=== PATIENT | female | born 1995 | race Caucasian/White ===

== ENCOUNTER 2018-12-11 16:30 | Outpatient (RCR) | payer BC, SELFPAY | END 2019-01-09 16:24 | disposition home or self-care (01) | LOC: PT.CARL 16:30 | PROVIDERS: Visit Provider Nurse Practitioner Family | DX: M54.5 Low back pain (principal) | CPT/HCPCS: 97012; 97110; 97163; 97164 ==

== ENCOUNTER 2020-06-11 10:56 | Emergency (ER) | payer BC, SELFPAY ==
[2020-06-11 11:08] VITALS: BP 126/70; PULSE 88; RESP 20; TEMP 36.6; O2SAT 96; BMI 37.5
--- NOTE | 2020-06-11 11:35 | HMH.EDUTC ---
[facility] Disposition Clinical Impression: Exposure to COVID-19 virus Disposition: Home, Self-Care Condition on Discharge: Good Instructions: Preventing the Spread of Coronavirus Discharge Instructions Additional Instructions: *Monitor Temp, Over the counter Motrin or Tylenol as directed/as needed Tylenol every 4 hours and Motrin every 6 hours (as long as your family doctor has told you that you can take it) for fever or pain. and straight to ER if unable to lower temp less than 101.0 after medication given *Warm salt water gargles may help to soothe the throat *Throat Lozenges *Warm fluids like tea with honey may help to soothe the throat *Sleep elevated *Humidifier/Vaporizer Follow up IMMEDIATELY for new or worsening symptoms or no Noticeable improvement over the next 48-72 hours. 911 for difficulty breathing or swallowing You was tested for today for COVID19 your test result should be back in the next 24-48 hours, you may call to the [facility] later today or tomorrow to see if your test results are back and the result [phone] [facility] hours are 9am-9pm You was given a handout with instructions for Self Quarantine and Self isolation for while you wait on test results and what to do if they are positive If you are positive the Health Dept will be contacting you also Prescriptions: Fluticasone Propionate [Flonase 50mcg nasal spray 16gm] 1 spr NS DAILY #1 bottle Transmission Status: Pending to [id number] Referrals: Kriss Landers APRN [Primary Care Provider] - As needed Forms: Work/School Release Time of Disposition: 11:35 Medical Decision Making - Arron Inquiry Pt receiving controlled substance: No Arron was queried for this patient: No Vital Signs: 06/11/20 11:08 Temperature 97.9 F Temperature Source Oral Pulse Rate [Radial] 88 Respiratory Rate 20 Blood Pressure [Right Arm] 126/70 Blood Pressure Mean [Right Arm] 88 Blood Pressure Source [Right Arm] Automatic Cuff Blood Pressure Position [Right Arm] Sitting 02 Sat by Pulse Oximetry 96 Oxygen Delivery Method Room Air Orders (Tests/Meds): ORDERS Category Date Time Status Covid-19 Nasal PCR ([facility]) Routine Lab 06/11/20 11:11 Ordered [facility] HPI - General Stated complaint: covid test Time Seen by Provider: 06/11/20 11:35 Mode of Arrival: Ambulatory Source of Information: Patient Limitations: No Limitations Description of Symptoms (Recalled from Triage Doc. by RN): COVID EXPOSURE ON TUESDAY. NO SYMPTOMS HEENT Symptoms (Recalled from RN notes): No Resp Symptoms (Recalled from RN notes): No Skin Symptoms (Recalled from RN notes): No MS Symptoms (Recalled from RN notes): No Functional Status (Recalled from RN notes): WNL - History of Present Illness Provider Complaint: Patient states that she was around someone over the weekend that has since tested positive for COVID States that she isnt having any symptoms but she works around some people that have a low immune system and wanted to get checked - Related Data Previous Rx's Medication Instructions Recorded Fluticasone Propionate [Flonase 1 spr NS DAILY #1 bottle 06/11/20 50mcg nasal spray 16gm] Allergies Allergy/AdvReac Type Severity Reaction Status Date / Time No Known Allergies Allergy Verified 06/11/20 11:10 - Worker's Comp Is this a Worker's Comp case?: No [facility] History - Hepatitis A Screen Drug use history?: No High risk sexual behaviors?: No History of sexually transmitted infection?: No Currently employed?: No Childcare worker?: No Do you have indoor plumbing?: Yes Do you have electricity?: Yes Attestation statement:: This patient has been screened for Hepatitis A risk factors. I have reviewed the patient's past medical history: Yes - Social History Alcohol Intake: never Occupational Status: employed ROS Obtained: Yes All systems reviewed & no additional complaints, Yes Systems reviewed as appropriate & no additional complaints - Constitutional Co
[2020-06-11 11:50] VITALS: BP 126/70; PULSE 88; RESP 20; TEMP 36.6; O2SAT 96
[2020-06-11 19:25] LABS: UTC Strep Screen (Rapid) Negative (Negative)
== END 2020-06-11 11:50 | disposition home or self-care (01) ==
PROVIDERS: Emergency Provider Nurse Practitioner; PCP Nurse Practitioner
DX: Z20.828 Contact with and (suspected) exposure to other viral communicable diseases (principal)
CPT/HCPCS: 87880; 99201; U0003

== ENCOUNTER 2021-03-14 08:01 | Outpatient (CLI) | payer BC, SELFPAY ==
[2021-03-14] VITALS (8 sets, daily range): BP systolic 93–134; BP diastolic 50–81; PULSE 86–94; RESP 14–18; TEMP 36.9–37.3; O2SAT 95–97
== END 2021-03-14 10:45 | disposition home or self-care (01) ==
PROVIDERS: PCP Nurse Practitioner; Visit Provider Nurse Practitioner Family
DX: U07.1 COVID-19 (principal)
CPT/HCPCS: 96365

== ENCOUNTER 2024-08-23 11:00 | Outpatient (RCR) | payer BC, SELFPAY | END 2024-08-23 23:59 | disposition home or self-care (01) | LOC: PT 11:00 | PROVIDERS: Visit Provider Nurse Practitioner Family | DX: M54.32 Sciatica, left side (principal) | CPT/HCPCS: 97012; 97014; 97110; 97140; 97163; 97530; G0283 ==

== ENCOUNTER 2024-08-27 16:01 | Outpatient (RCR) | payer BC, SELFPAY | END 2024-08-27 23:59 | disposition home or self-care (01) | LOC: PT 16:01 | PROVIDERS: Visit Provider Nurse Practitioner Family | DX: M54.32 Sciatica, left side (principal) ==

== ENCOUNTER 2025-04-02 00:39 | Emergency (ER) | payer BC, SELFPAY ==
--- OUTSIDE RECORDS SUMMARY | 2020-04-17 03:55 | XMS_ITS | Continuity of Care Document ---
Author Organization [facility] Address [address] [place] [address] Phone Care Team Providers Care Automatic Punch Press Operator Name Role Phone Alcira SINGLETARY, MSN,WOMEN'S SOCCER COACH-C, Monica Unavailable Un available Allergies, Adverse Reactions, Alerts Substance Reaction Status Criticality No Known Allergies Active No Inform ation Medications Medication Instructions Dosage Effective Dates (start - stop) Status Comments spironolactone 25 mg tablet take 1 tablet by oral route every day 25 MG - Active NUVARING (unknown strength) insert 1 vaginal ring by vaginal route every month leave in place for 3 weeks, remove for 1 week Not Available - Active acyclovir 400 mg tablet 1 tab po bid for viral suppression (#60) - No Longer Active acyclovir 400 mg tablet 1 tab po BID for viral suppresion (#100) - No Longer Active Procedures Procedure Date SPECIMEN HANDLING Chlamydia, Amplified Probe Gonorrhea, Amplified Probe HERPES SIMPLEX TYPE 2 HIV 4th Generation Syphilis/reflex Trichomonas ROUTINE VENIPUNCTURE KENDELL VIRUS ISOLATE, HSV OFFICE/OUTPATIENT VISIT, EST SPECIMEN HANDLING Chlamydia, Amplified Probe Gonorrhea, Amplified Probe HERPES SIMPLEX TYPE 2 HIV 4th Generation Syphilis/reflex Urine Test w/exam OFFICE/OUTPATIENT VISIT, NEW TISSUE EXAM FOR FUNGI Ph Paper ROUTINE VENIPUNCTURE Metronidazole 500mg #4 Advance Directives Directive Yes / No Effective Date File Name No Information Encounters Encounter Description Practice Location Reason(s) For Visit Diagnoses Date Provider Providers Copied on Encounter [facility], [address] , [place], [place], [facility], tel:[phone] [facility] Anogenital herpesviral infection, unspecified Mar-2 0 Alcira Monica. [address], [facility] [address], [place], [place], [address] [place] [address] , . tel: [phone] [facility], [address] , [place], [facility], tel: [phone] [facility] Anogenital herpesviral infection, unspecified Apr-0 9 Alcira Monica. [address], [address], [place], [place], [id number] , . tel: [phone] OFFICE/OUTPA TIENT VISIT, EST [facility], [address] , [place], [facility], [place] tel:[phone] [facility] Genital Lesions (chief complaint) Encntr screen for infections w sexl mode of transmissRash and other nonspecific skin eruption Apr-0 9 Alcira Monica. [address], [address], [place], [place], [id number] , . tel: [phone] OFFICE/OUTPA TIENT VISIT, NEW [facility], [address] , [place], [facility], [place] tel:[phone] [facility] Vaginal Itching (chief complaint) Vaginal Odor (chief complaint) Encntr screen for infections w sexl mode of transmissEncoun ter for test, result negativeUrogeni xiomara trichomoniasis, unspecifiedAcut e vaginitis 9 Amanda Bingham. [address], [address], [place], [address], [place]. tel: [phone] [facility], [address], [place], [address], [place] tel:[phone] [facility] No Information 9 Amanda Bingham. [address], [address], [place], [address], [place]. tel:[phone] Family History Family Member Type Diagnosis Age At Onset 1st degree relative Problem (finding) No hx of venous thromboembolism 1st degree relative Problem (finding) No hx of c oronary heart disease (female <65, male <55) Mother Problem (finding) asthma 1st degree relative Problem (finding) No hx of c ancer of breast, colon, endometrium or ovary Payers Payer name Insurance type Covered republican ID Shivam osborn(s) [employer] Insurance CI [id number] Social History Type Description Quantity Date Captured Comments Alcohol Use Details Unknown Caffeine Use Details Unknown Tobacco Use Status No Information Smoking Status Never smoker Sex Female Sexual Orientation Straight or heterosexual Gender Identity Female Chief Complaint And Reason For Visit No Information Reason For Referral Reason For Referral No Information History Of Present Illness Encounter Date Complaint History Of Prese nt Illness Genital Lesions Onset 3 days ago . It occurs persistently. Location was vulvar. The patient describes it as painful. Aggravated by irritation/friction. The problem is worsening. Context: no known exposures. Denies relieving factors. Pertinent negatives include abdominal pain, dysuria, fatigue, fever, hair loss, nausea and parasites. Vaginal Itching Onset: 2 weeks a go. Location is vaginal and vulvar. The patient describes it as burning. Denies aggravating factors. Denies relieving factors. Pertinent negatives include discharge or dyspareunia. Additional information: LMP: 01/08/2019 Noted odor and tried OTC antifungal c no relief. Last act of IC 1 month ago. Noted post-coital bleeding.. Functional Status Date Functional Assessmen t No Information Instructions Date Instruction Additional Infor mation No Information Assessments Type Assessment Date No Information Patient Care Teams Name Effective Dates (start - stop) Status Members No Information
--- OUTSIDE RECORDS SUMMARY | 2024-10-01 09:16 | XMS_ITS | Continuity of Care Document ---
Author Organization [facility] Address [address] [place] [address] Phone Care Team Providers Care Audograph Operator Name Role Phone Dina Franco Unavailable Unavailable Allergies, Adverse Reactions, Alerts Substance Reaction Status Criticality No Known Allergies Active No Inform ation Medications Medication Instructions Dosage Effective Dates (start - stop) Status Comments ETONOGESTREL-EE VAGINAL RING INSERT 1 VAGINAL RING BY VAGINAL ROUTE EVERY MONTH.LEAVE IN PLACE FOR 4 WEEKS, THEN REPLACE - Active acyclovir 400 mg tablet take 1 tablet by oral route 2 times every day 400 MG - Active Problems Condition Type Effective Dates (start - stop) Clini angeline Status Comments No Known Problems Procedures Procedure Date E/M Ep Preventive 18 To 39 Yrs 22 Handling Convey Specimen Phy Off To Lab E/M Ep Preventive 18 To 39 Yrs 21 Handling Convey Specimen Phy Off To Lab OFFICE/OUTPATIENT VISIT, NEW Advance Directives Directive Yes / No Effective Date File Name No Information Encounters Encounter Description Practice Location Reason(s) For Visit Diagnoses Date Provider Providers Copied on Encounter [facility] [address], [place], [place], [id number] , [place] tel:[phone] [facility] [address] No Information Kelley Arroyo. [address] [place] [address], [facility] [address], [place], [place], [id number] , [place]. tel:[phone] [facility] [address], [place], [place], [id number] , [place] tel: [phone] [facility] [address] No Information 4 Kelley Arroyo. [address], [address], [place], [place], [id number] , [place]. tel: [phone] E/M Ep Preventive 18 To 39 Yrs [facility] [address], [place], [place], [address] , [place] tel: [phone] [facility] [address] annual exam (chief complaint) Body mass index (BMI) 31.0-31.9, adultEncntr for oil recovery unit operator exam (general) (routine) w abnormal findingsEncounter for surveillance of other contraceptivesCounsel ing for control regarding intrauterine device (IUD)Screening for STD (sexually transmitted disease) 2 Kelley Monteroy. [address] [place] [address], [address], [place], [place], [id number] , [place]. tel:[phone] Referring Provider: Roel Lee, [address], [place], [address]. tel:[phone] E/M Ep Preventive 18 To 39 Yrs [facility] [address], [place], [place], [id number] , [place] tel: [phone] [facility] [address] annual exam (chief complaint) OverweightEncntr for oil recovery unit operator exam (general) (routine) w abnormal findingsEncounter for surveillance of other contraceptives 1 Ricky Sevilla. [address] [place] [address], [address], [place], [address], [place]. tel:[phone] Referring Provider: Roel Lee, [address], [place], [address]. tel:[phone] OFFICE/OUTPA TIENT VISIT, [facility] [address], [place], [place], [id number] , [place] tel:[phone] [facility] [address] Structural Fitter Problem (chief complaint) Negative testEncntr screen for infections w sexl mode of transmissBreakthrough bleeding with NuvaRing Ricky Sevilla. [address], [address], [place], [address], [place]. tel:[phone] Referring Provider: Roel Lee, [address], [place], [address]. tel:[phone] Family History Family Member Type Diagnosis Age At Onset Mother Problem (finding) Asthma familyHO Problem (finding) Hypertension familyHO Problem (finding) Diabetes mellitus familyHO Problem (finding) Stroke Payers Payer name Insurance type Covered democrat ID Authoriza tion(s) No Information Social History Type Description Quantity Date Captured Comments Sex Female Smoking Status No Information Chief Complaint And Reason For Visit No Information Reason For Referral Reason For Referral No Information Plan Of Treatment Date Type Action Status Goal Tdap. Due on due Goal Td vaccine. Due on due Goal Pap/HPV testing. Due on due Goal Influenza vaccine. Due on due Goal Dilated Eye Exam. Due on Apr due Goal Depression screening. Due on due Goal Tdap. Due on due Goal Td vaccine. Due on due Goal Pap/HPV testing. Due on due Goal Influenza vaccine. Due on due Goal Dilated Eye Exam. Due on Jan due Goal Depression screening. Due on due Goal Dietary management education , guidance, and counseling completed Goal Tdap. Due on due Goal Td vaccine. Due on due Goal PAP. Due on due Goal Influenza vaccine. Due on due Goal Dilated Eye Exam. Due on Aug due Goal Depression screening. Due on due History Of Present Illness Encounter Date Complaint History Of Prese nt Illness annual exam Currently pregna nt: no. Patient is not contemplating . The patient states she uses NuvaRing for control. Her menses is with a frequency of 3 Months. The patient does not use tobacco. She does drink alcohol. Additional information: LPS: 02/03/2021- NIL, see chart. Patient has a cycle every three months. Wants to discuss other BC options.. annual exam Currently pregna nt: no. Patient is not contemplating . The patient states she uses NuvaRing for control. Last LMP was 01/20/2021. Negative for dysmenorrhea. Negative for: breast discharge, breast lump(s) and breast pain. Pertinent negatives include anxiety, depression and vaginal discharge. The patient does not use tobacco. She does drink alcohol. Additional information: last pap 06/2019 normal depression - 0 no family hx of cancerbleeding has become better with nuvaring. 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 Pt sts that she is currently using the NuvaRing. Will normally have a cycle every 3 months. Does have occasional BTB. The pt sts that her last cycle last a month and a half and progressively got heavier and heavier. LMP: 06/08/20UPT: NegativeLast pap normal within 2 yearsuses q 3weeks consecutively then a week out Functional Status Date Functional Assessmen t No Information Instructions Date Instruction Additional Infor mation Giving encouragement to exercise Related to Body mass index [BMI] 31.0-31.9, adult Dietary management e ducation, guidance, and counseling Related to Overweight Assessments Type Assessment Date No Information Patient Care Teams Name Effective Dates (start - stop) Status Members No Information
--- NOTE | 2025-04-02 00:44 | HMH.EDGENADL ---
Discharge Plan Disposition Patient Disposition: Home, Self-Care Prescriptions Prescriptions: New epinephrine [EpiPen 2-Alcides] 0.3 mg/0.3 mL auto-injector 0.3 mg IM Q10M PRN (Reason: anaphylaxis) Qty: 2 0RF Rx Instructions: for 2 doses No Action fluticasone propionate 120 SPR/BOT bottle 1 spr NS DAILY Qty: 1 0RF Rx Instructions: each nostril daily Referrals Follow up/Referrals: Kriss Landers APRN [Primary Care Provider, Medical] - See instructions Activity Restrictions/Add. Instructions Additional Instructions/Restrictions: Please follow-up with your primary care provider. Please return to the emergency department if you develop any new or worsening symptoms or become concerned for your health. Clinical Impressions Clinical Impression: Abdominal pain, Vomiting, Pruritus of both hands, Vaginal bleeding Instructions Patient Instructions: DI for Acute Abdominal Pain Print Language Print Language: [place] Discharge ED Provider: Damian Mckinney General Adult HPI General Chief complaint: Abdominal Pain Stated complaint: stomach pain, vaginal bleeding, rash , vomiting Time Seen by Provider: 04/02/25 00:43 History of Present Illness HPI narrative: 30-year-old female with history of hypothyroidism presents for multiple complaints. She reports that she has been having recurrent episodes that she cannot explain. She will randomly get hot and red palms and soles of her feet that get itchy. She then gets abdominal pain, nausea and vaginal bleeding. She says that she has seen her PCP and they ran some tests but no obvious diagnosis yet. She reports that she does not normally have any issues with vaginal bleeding, thinks her last menstrual period was about 3 weeks ago. She denies any fever. She reports that her symptoms woke her up tonight. Reports dry mouth and diarrhea as well. Currently is only experiencing lower abdominal pain and nausea. Denies shortness of breath or facial swelling. She is concerned that she could be experiencing recurrent allergic reactions or possibly alpha-gal, she says that she had an adherent tick a couple months ago. She thinks that the days that she has had these episodes she had red meat earlier in the day. But she has also had red meat on days where she has not had any symptoms. She has had 3 or 4 these episodes this month. Related Data Previous Rx's ?Medication ?Instructions ?Recorded fluticasone propionate 50 1 spr NS DAILY ##1 06/11/20 mcg/actuation nasal spray,suspension epinephrine 0.3 mg/0.3 mL 0.3 mg (0.3 mL) IM Q10M PRN 04/02/25 injection, auto-injector (EpiPen anaphylaxis #2 ea 2-Alcides) Allergies Allergy/AdvReac Type Severity Reaction Status Date / Time No Known Allergies Allergy Verified 06/11/20 11:10 [facility] Disclaimer: The information contained in this section may have been updated after the patient was seen, as this information can be updated by other users. Social History Smoking Status: Never smoker alcohol intake: never current occupational status: employed Travel in the last 8 weeks?: None Have you lived/traveled outside [place] in past 30 days?: No Contact w/someone who lives/traveled outside US past 30 days?: No Exposure to someone with infectious disease in past 14 days?: No Do you have a fever (greater than 100.4 F or 38 C)?: No Have you tested positive for COVID-19?: No Exposed to someone with COVID-19 in past 14 days?: No Do you have a sore throat?: No Do you have a cough?: No Do you have any weakness?: No Do you have any diarrhea?: No Are you experiencing any unusual bleeding?: Yes Do you have any muscle aches/pain?: No Do you have any abdominal pain?: No Are you experiencing loss of taste or smell?: No ROS Obtained: Yes All systems reviewed & no additional complaints except as documented Physical Exam General General appearance: alert and in no apparent distress Head Head exam: atraumatic and normocephalic Eye Eye exam: Present normal appearance, PERRL and EOMI ENT ENT exam: Present normal oropharynx and normal external ear exam Neck Neck exam: Present normal inspection and full ROM Chest Chest inspection: Present normal inspection and symmetric chest wall rise; Absent tenderness Respiratory Respiratory exam: Present normal lung sounds bilaterally; Absent respiratory distress Cardiovascular Cardiovascular exam: Present regular rate and normal rhythm Abdominal Exam Abdominal exam: Present soft and tenderness (Generalized, lower abdominal); Absent distention or guarding Extremities Exam Extremities exam: Present normal inspection; Absent edema or joint swelling Back Exam Back exam: Present normal inspection; Absent tenderness Neurological Exam Neurological exam: Present alert and oriented X3; Absent motor sensory deficit Psychiatric Psychiatric exam: Present normal affect and normal mood Skin Skin exam: Present warm, dry and normal color Lymphatic Lymphatic Findings: no adenopathy Medical Decision Making Medical Records Medical records reviewed: Yes I reviewed the patient's medical records. Screening: Per USPSTF and CDC recommendations, given the prevalence of disease in our region, it is our hospital?s policy to screen for HIV and viral Hepatitis for all patients aged 18 and over and those with ongoing risk factors. Arron Inquiry Pt receiving controlled substance: No Arron was queried for this patient: No Vital Signs: 04/02/25 00:58 04/02/25 01:30 04/02/25 02:05 Temperature 98.0 F 98 F Temperature Source Oral Oral Pulse Rate 64 93 H Pulse Rate [Left Radial] 88 Respiratory Rate 22 16 Blood Pressure 140/83 140/83 Blood Pressure [Right Arm] 127/95 H Blood Pressure Mean [Right Arm] 105 Blood Pressure Source [Right Arm] Automatic Cuff Blood Pressure Position Sitting Blood Pressure Position [Right Arm] Sitting 02 Sat by Pulse Oximetry 100 95 Oxygen Delivery Method Room Air Room Air Lab Data Lab results reviewed: Yes I reviewed the patient's lab results. Lab Results 04/02/25 00:55: WBC 10.9 H, RBC 4.51, Hgb 13.5, Hct 37.9, MCV 84.0, MCH 29.9, MCHC 35.6 H, RDW 12.7, Plt Count 225, MPV 12.3 H, Neut % (Auto) 66.1, Lymph % (Auto) 25.3, Ida % (Auto) 6.8, Eos % (Auto) 1.3, Baso % (Auto) 0.2, Neut # (Auto) 7.2, Lymph # (Auto) 2.8, Ida # (Auto) 0.7, Eos # (Auto) 0.1, Baso # (Auto) 0.0, Sodium 138, Potassium 3.8, Chloride 104, Carbon Dioxide 22, Anion Gap 15.8 H, BUN 17, Creatinine 0.70, Estimated Creat Clear 190, Estimated GFR 97, Est GFR ( Amer) 117, Glucose 102 H, Calcium 9.9, Magnesium 1.7, Total Bilirubin 0.4, AST 27, ALT 20, Alkaline Phosphatase 71, Total Protein 7.4, Albumin 4.5, Globulin 2.9, Albumin/Globulin Ratio 1.6, Lipase 46, Serum HCG, Qual Negative 04/02/25 01:14: HCV Ab EILEEN w/Rflx PCR Qn Negative, HIV Ag/Ab Combo Qual Negative 04/02/25 00:55 04/02/25 00:55 Orders (Tests/Meds): ED MEDICATIONS Discontinued Medications Generic Name Dose Route Start Last Admin Trade Name Indigo PRN Reason Stop Dose Admin Acetaminophen 1,000 mg 04/02/25 00:52 04/02/25 01:06 Acetaminophen 500mg Tab PO 04/02/25 00:53 1,000 mg ONCE ONE Administration Sodium Chloride 1,000 mls @ 999 mls/hr 04/02/25 01:00 04/02/25 02:04 Sod Chlor 0.9% 1000ml Bag IV 04/02/25 02:00 Infused .Q1H1M MARKO Infusion Morphine Sulfate 4 mg 04/02/25 00:52 04/02/25 01:06 Morphine 4mg/Ml Syringe IV 04/02/25 00:53 4 mg ONCE ONE Administration Ondansetron HCl 4 mg 04/02/25 00:52 04/02/25 01:06 Ondansetron 4mg/2ml Vial IV 04/02/25 00:53 4 mg ONCE ONE Administration ORDERS Category Date Time Status Alpha-Gal IgE Panel Stat Lab 04/02/25 01:14 Received CBC w/Auto Diff [Complete Blood Count Auto Diff] Stat Lab 04/02/25 00:55 Completed CMP [Comprehensive Metabolic Panel] Stat Lab 04/02/25 00:55 Completed HCG Qualitative, Serum Stat Lab 04/02/25 00:55 Completed HIV Combo Stat Lab 04/02/25 01:14 Completed Hepatitis C Ab Qual. W/ RFX Stat Lab 04/02/25 01:14 Completed Lipase Stat Lab 04/02/25 00:55 Completed Magnesium Stat Lab 04/02/25 00:55 Completed Medical Decision Narrative: 30-year-old female with history of hypothyroidism presents with recurrent episodic symptoms including red/hot/itchy palms and soles, abdominal pain, vomiting, vaginal bleeding. History was obtained via interactive discussion with patient, family, chart review. On arrival, patient is [afebrile, hemodynamically stable, satting appropriately, alert, oriented x4, GCS 15], moving all extremities spontaneously. Full physical exam performed and significant for generalized abdominal tenderness, no findings on the palms or soles, normal lung sounds, normal HEENT exam. Differential includes but is not limited to allergic reaction, anaphylaxis, alpha gal, ectopic , menstrual bleeding, ovarian cyst, angioedema. Patient was given morphine, Zofran, Tylenol, fluid for symptomatic management and correction of underlying abnormalities. I considered administering medications for allergic reaction/anaphylaxis, but patient no longer has any skin findings, has normal vital signs, and only has possible single system involvement with nausea and vomiting. Workup initiated including CBC CMP lipase qualitative beta-hCG. On re-evaluation, patient reports significant symptomatic improvement. Has no tenderness on exam. Laboratory workup independently interpreted by me and significant for negative test, negative lipase, normal renal function, no significant leukocytosis. CT imaging/ultrasound was considered, but deemed unnecessary due to low concern for surgical abdominal pathology Given patient history, exam and workup, patient's presentation most likely represents possible allergic reaction. Unclear what the underlying etiology is. I did send off a alpha gal IgE panel which is presumably a send out. I sent a prescription for EpiPen's to take if symptoms recur, especially for development of multi organ involvement or respiratory involvement. Recommended she continue to follow-up with PCP for further assessment. Procedures Risk/Benefits of Procedure(s) Were Explained: Yes Critical Care Critical Care Time Critical Care Time: No
--- OUTSIDE RECORDS SUMMARY | 2025-04-02 00:48 | XMS_ITS | Clinical Summary ---
Author Organization [facility] Address [address] [place] [address] Care Team Providers Care Supervisor [employer] Name Role Phone Provider, No Known Primary Care Provider Unavail able Allergies No known active allergies Medications Euthyrox 25 MCG tablet Take 25 mcg by mouth Daily. 04/10/2020 Active Saxenda 18 MG/3ML injection pen 04/14/2021 Active Active Problems Problem Noted Date Diagnosed Date Hypothyroidism (acquired) 05/07/2021 Obesity (BMI 30-39.9) 04/21/2020 Resolved Problems Problem Noted Date Diagnosed Date Resolved Date delivery delivered 08/04/2016 08/07/2016 H/O: section 08/04/20162016 Immunizations Immunization Administration Dates Next Due MMR 08/04/2016 Family History Medical History Relation Name Comments No Known Problems Brother Cancer Father mouth Hyperlipidemia Father Hypertension Father No Known Problems Maternal Grandfather Diabetes Maternal Grandmother Hyperlipidemia Maternal Grandmother Arthritis Mother Other Other Family History Respiratory D isease No Known Problems Son Relation Name Status Comments Brother Alive Father Alive Maternal Grandfather Maternal Grandmother Alive Mother Alive Other Family History Paternal Grandfather Paternal Grandmother Son Alive Social History Tobacco Use Types Packs/Day Years Used Date Smoking Tobacco: Never Smokeless Tobacco: Never Tobacco Cessation:Counseling Given: No Alcohol Use Standard Drinks/Week Comments Yes 0 (1 standard drink = 0.6 oz pur e alcohol) socially/rare Abuse Screen Answer Date Recorded Unsafe at Home or Work/School Not on file Feels Threatened by Someone? Not on file 03/2023 Does Anyone Keep You from Co ntacting Others or Doint Things Outside the Home? Not on file 05/02/2023 Physical Sign of Abuse Present Not on file 1 Housing Stability Answer Date Recorded Current Living Arrangements Not on file 03/2023 Potentially Unsafe Housing Conditions Not on chris e 05/02/2023 Family and Community Support Answer Santos e Recorded Help with Day-to-Day Activities Not on file 05/02/2023 Lonely or Isolated Not on file 05/02/2023 Employment Answer Date Recorded Do you want help finding or keeping work or a italo b? Not on file 05/02/2023 Disabilities Answer Date Recorded Concentrating, Remembering, or Making Decisions Difficulty Not on file 05/02/2023 Doing Errands Independently Difficulty Not on fi le 05/02/2023 Education Answer Date Recorded Help with school or training? Not on file Preferred Language Not on file 05/02/2023 Comments No Sex and Gender Information Value Date Recorded Sex Assigned at Not on file Legal Sex Female 10:38 AM EDT Gender Identity Not on file Sexual Orientation Not on file Last Filed Vital Signs Vital Sign Reading Time Taken Comments Blood Pressure 102/70 05/07/2021 1:13 PM EDT Pulse 94 08/07/2016 8:00 AM EST Temperature 36.7 C (98 F) 08/07/2016 8:00 AM EST Respiratory Rate 18 08/07/2016 8:00 AM EST Oxygen Saturation 97% 08/04/2016 9:32 AM EST Inhaled Oxygen Concentration - - Weight 102 kg (225 lb) 05/07/2021 1:13 PM EDT Height 170.2 cm (5' 7 ) 05/07/2021 1:13 PM EDT Body Mass Index 35.24 05/07/2021 1:13 PM EDT Plan of Treatment Health Maintenance Due Date Last Done Comments TDAP/TD VACCINES (1 - Tdap) 01/30/2012 ANNUAL PHYSICAL 04/11/2020 HEPATITIS C SCREENING 04/11/2020 Annual Gynecologic Pelvic an d Breast Exam 05/08/2022 05/07/2021, 05/07/2021 COVID-19 Vaccine ( - 2023-2 5 season) 2025 INFLUENZA VACCINE 04/24/2025 Pneumococcal Vaccine 0-49 Aged Out No longer eligible based on patient's age to complete this topic Procedures Procedure Name Priority Date/Time Associated Diagnosis Comments SCANNED - LABS 03/19/2025 SCANNED - IMAGING 03/14/2025 SCANNED - PAP SMEAR 05/07/2021 from Last 3 Months or Most Recently Relevant to Health Maintenance Results * LABS SCANNED (03/19/2025) [facility] LAB BLOOD ORDERABLES Final Re sult * IMAGING SCANNED (03/14/2025) Anatomical Region Laterality Modality Radiographic Mar[facility] ging [facility]NOSTIC IMAGING ORDERA BLES Final Result * SCANNED - PAP SMEAR (05/07/2021) Ольга Villarreal MD CHART REVIEW TABS Fin al Result from Last 3 Months or Most Recently Relevant to Health Maintenance Insurance PPO Advance Directives * Full Code (Latest Code Status on File) Date Activated Date Inactivated Comments 08/04/2016 11:14 AM 08/07/2016 3:40 PM * Full Code Date Activated Date Inactivated Comments 08/04/2016 6:14 AM 08/04/2016 11:14 AM Care Teams Supervisor [employer] Cell [employer] Relationship Specialty Start Date End Date Provider, No Known [facility] [place] [id number] PCP - General 06/21/16
[2025-04-02 00:58] VITALS: BP 127/95; PULSE 88; RESP 22; TEMP 36.7; O2SAT 100; BMI 36.0
--- NOTE | 2025-04-02 01:00 | PC.NURSE ---
Assisted patient to restroom to attempt to provide urine for testing, only voided a small amount then dropped cup in toilet. Sample discarded.
[2025-04-02] MEDS: 0.9 % SODIUM CHLORIDE 1000ML 1,000 ML 999 ML IV (01:05)
[2025-04-02] MEDS: ONDANSETRON 4MG/2ML VIAL 4 MG IV (01:06)
[2025-04-02] MEDS: ACETAMINOPHEN 500MG TAB 1000 MG PO (01:06)
[2025-04-02] MEDS: MORPHINE 4MG/ML SYRINGE 4 MG IV (01:06)
[2025-04-02 01:07] LABS: Hematocrit 37.9 % (37.0-47.0); Hemoglobin 13.5 g/dL (12.2-16.2); Immature Granulocytes % 0.3 %; Mean Corpuscular HGB Conc 35.6 g/dL (31.8-35.4); Mean Corpuscular Hemoglobin 29.9 pg (27.0-31.2); Mean Corpuscular Volume 84.0 fl (81-99); Nucleated Red Blood Cells % 0 %; Platelet Count 225 K/mm3 (142-424); Red Blood Count 4.51 M/mm3 (4.20-5.40); Red Cell Distribution Width-SD 38.4 fL; White Blood Count 10.9 K/mm3 (4.8-10.8)
[2025-04-02 01:09] LABS: Albumin Level 4.5 g/dl (3.5-5.0); Chloride 104 mmol/L (98-107)
[2025-04-02 01:10] LABS: Potassium 3.8 mmoL/L (3.5-5.1); Sodium 138 mmol/L (136-145)
[2025-04-02 01:12] LABS: Alanine Aminotransferase 20 U/L (12-78); Aspartate Amino Transferase 27 U/L (14-36); Blood Urea Nitrogen 17 mg/dl (7-17); Creatinine Clearance Estimated 190 mL/min (50-200); Creatinine,Serum 0.70 mg/dl (0.52-1.04); Estimated Glomerular Filt Rate 97 ml/min (>60); GFR (African American) 117 ML/MIN (>60)
[2025-04-02 01:13] LABS: Albumin/Globulin Ratio 1.6 (1.1-1.8); Alkaline Phosphatase 71 U/L (38-126); Anion Gap 15.8 mEq/L (5-15); Bilirubin,Total 0.4 mg/dl (0.2-1.3); Calcium 9.9 mg/dl (8.4-10.2); Carbon Dioxide 22 mmol/L (22.0-30.0); Globulin 2.9 g/dL (1.3-3.2); Glucose 102 mg/dl (74-100); Lipase 46 U/L (23-300); Magnesium 1.7 mg/dl (1.6-2.3); Total Protein,Serum 7.4 g/dl (6.3-8.2)
--- NOTE | 2025-04-02 01:16 | PC.NURSE ---
additional yellow top lab tubes collected and sent to the lab at this time.
[2025-04-02 01:30] VITALS: BP 140/83; PULSE 64; O2SAT 95
[2025-04-02 01:42] LABS: HCG Qualitative, Serum Negative (Negative)
--- NOTE | 2025-04-02 01:50 | PC.NURSE ---
ed provider at the bedside updating on POC
[2025-04-02 02:05] VITALS: BP 140/83; PULSE 93; RESP 16; TEMP 36.6; O2SAT 97
[2025-04-02 02:40] LABS: Hepatitis C Ab Qual. W/ RFX NEGATIVE (Negative)
[2025-04-05 17:12] LABS: O215-IgE Alpha-Gal < 0.10 kU/L (Class 0)
== END 2025-04-02 02:06 | disposition home or self-care (01) ==
PROVIDERS: Emergency Provider Emergency Medicine; PCP Nurse Practitioner
DX: R10.9 Unspecified abdominal pain (principal); N93.9 Abnormal uterine and vaginal bleeding, unspecified; L29.9 Pruritus, unspecified; R11.10 Vomiting, unspecified
CPT/HCPCS: 80053; 82785; 83690; 83735; 84703; 85025; 86003; 86008; 86803; 87389; 96361; 96374; 96375; 99285; J2270; J2405; J7030